=== PATIENT | female | born 1990 | race African-American/Black ===

== ENCOUNTER 2016-11-02 13:35 | Emergency (ER) | payer OTHER ==
[~2016-11-02] VITALS: Ht 175.3 cm; Wt 79.5 kg
[~2016-11-02 13:35] MED LIST: NUVAMIS PV; PRENCAP6 PO; TYLE500T PO; VITA50TA3 PO
--- NOTE | 2016-11-02 14:24 | PD ---
HPI Chief Complaint: Medical Clearance Time Seen by Provider: 14:21 Travel History International Travel<30 days: No Contact w/Intl Traveler<30days: No Traveled to known affect area: No History of Present Illness HPI 26-year-old female presents to the emergency department for evaluation of needle stick injury to right hand second finger. The patient works as a surgical lead in the OR here at [employer] and was assisting in surgery when she was accidentally stuck in the right second finger with a suture needle. She is unsure of the medical history of the source patient, unsure if he has HIV or hepatitis C, his blood work will be sent for testing. She denies any pain. States she clean the site with alcohol immediately following the stick. She denies any medical conditions. Denies . No other complaints. PFS Past Medical History Medical History: Denies Significant Hx Diminished Hearing: No ?: Not LMP: 10/23/2016 Past Surgical History Tonsillectomy: Yes Other Surgery: Yes (COLONOSCOPY) Social History Alcohol Use: No Tobacco Use: No Substance Use: No Allergies-Medications (Allergen,Severity, Reaction): Coded Allergies: No Known Allergies (Verified , 02/05/16) Reported Meds & Prescriptions Reported Meds & Active Scripts Active Nuvaring (Etonogestrel/Ethinyl Estradiol) Vagring 1 Ea PV DIRECTED VAGINAL RING TO REMAIN IN PLACE FOR THREE WEEKS. IT IS REMOVED FOR A ONE WEEK BREAK. A NEW RING IS INSERTED ONE WEEK AFTER THE LAST RING WAS REMOVED. Vitafol Ultra 29-0.6-0.4-200 mg ( Vit W/ Fe Polysacch C) 1 Cap Cap Vit B-6 (Pyridoxine HCl) 50 Mg Tab 25 Mg PO Q8HR PRN Reported Tylenol (Acetaminophen) 500 Mg Tab 500 Mg PO Q6H 1 ( Multivitamins) Cap 1 Cap PO DAILY Review of Systems Except as stated in HPI: all other systems reviewed are Neg Physical Exam Narrative GENERAL: Well-nourished and well-developed pleasant female patient in no acute distress who is nontoxic appearing. SKIN: Warm and dry. Pinpoint needle stick injury to the radial volar distal right second finger. No bleeding. HEAD: Normocephalic and atraumatic. EYES: No injection, drainage, or hyphema noted. PERRLA. EOMI. ENT: No nasal drainage noted. Oropharynx is clear. NECK: Supple and the trachea is midline. CARDIOVASCULAR: Regular rate and rhythm. RESPIRATORY: Breath sounds are equal bilaterally with no accessory muscle use, wheezing, rhonchi, or crackles. NEUROLOGICAL: Awake, alert, and oriented. Normal speech and gait. Cranial nerves are grossly intact. MDM Medical Decision Making Medical Screen Exam Complete: Yes Emergency Medical Condition: Yes Differential Diagnosis Needle stick injury versus blood exposure versus post exposure prophylaxis Narrative Course 26-year-old female presents to the emergency department for evaluation of needle stick injury to right hand second finger. Patient is afebrile, vital signs are stable. This is a tiny pinpoint needle stick. I discussed with the patient that this is very low risk of transmission of illness and that I do not recommend postexposure prophylactic therapy. The patient would like to wait to receive the results of the source patient's blood work before she decides whether she wants postexposure prophylactic therapy. She is advised to follow- up with employee med as needed. Patient verbalizes understanding and agreement with treatment plan. Diagnosis Primary Impression: Needle stick injury of finger of right hand Qualified Code: S61.239A - Needle stick injury of finger of right hand, initial encounter Referrals: [facility] Patient Instructions: Body Substance Exposure (ED), General Instructions Additional Instructions: Follow-up with [facility]. Return to the ED for any acute worsening of symptoms. Med/Other Pt SpecificInfo: No Change to Meds Disposition: 01 DISCHARGE HOME Condition: Stable Sola Grayson Nov 02, 2016 14:24
[2016-11-12] MEDS ORDERED: ZITHTAB PO (12:55)
[2016-11-12] MEDS ORDERED: PRED20 PO (12:55)
[2016-11-12] MEDS ORDERED: BENZ100 PO (12:57)
== END 2016-11-02 14:31 | disposition home or self-care (01) ==
LOC: NEPB 13:35
DX: S61.230A Puncture wound without foreign body of right index finger without damage to nail, initial encounter (principal); W46.0XXA Contact with hypodermic needle, initial encounter; Y93.89 Activity, other specified; Y99.0 Civilian activity done for income or pay; Y92.234 Operating room of hospital as the place of occurrence of the external cause
CPT/HCPCS: 99282